=== PATIENT | male | born 1945 | race Caucasian/White ===

== ENCOUNTER → 2023-10-06 10:41 | Outpatient (CLI) | payer MEDICARE, OTHER, SELFPAY ==
--- NOTE | 2023-10-06 | DI.RAD.S_ITS ---
PROCEDURE: FL UPPER GI SERIES INDICATIONS: Prior Aissatou fundoplication. Heartburn. COMPARISON: None. 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 No suspicious abdominal calcifications. Visualized solid organ contours appear normal. Bony structures appear unremarkable. Esophagus: There is normal esophageal peristalsis. No strictures, extrinsic mass effects, or diverticula. No elicited gastroesophageal reflux. Recurrent hiatal hernia. Stomach: Stomach is normally distensible, without extrinsic mass effects. Pylorus and duodenal bulb demonstrate normal single-contrast morphology. There is ready transit of contrast through the gastric outlet into the small bowel. IMPRESSION: Recurrent hiatal hernia. Dictated by: Holger Valle M.D. on 10/06/2023 at 13:07 Approved by: Holger Valle M.D. on 10/06/2023 at 13:08
== END ==
PROVIDERS: PCP Registered Nurse; Referring Provider Internal Medicine Gastroenterology; Visit Provider Internal Medicine Gastroenterology
DX: Z87.19 Personal history of other diseases of the digestive system (principal); K44.9 Diaphragmatic hernia without obstruction or gangrene
CPT/HCPCS: 74240

== ENCOUNTER → 2024-04-04 13:01 | Outpatient (CLI) | payer MEDICARE, OTHER, SELFPAY ==
--- NOTE | 2024-04-04 13:03 | DI.US.S_ITS ---
PROCEDURE: US EXTREMITY NONVASC LOWER RT INDICATIONS: Strain of right Achilles tendon, initial encounter TECHNIQUE: Real-time scanning was performed of the Achilles tendon , with image documentation. COMPARISON: None. FINDINGS: Nonspecific focus of 3.3 x 0.9 x 1 point cm hypervascular focus at the Achilles tendon. IMPRESSION: Heterogeneous focus at the Achilles tendon with increased vascularity. This may represent hematoma. However, ultrasound findings are indeterminate. Dictated by: Bree Conklin M.D. on 04/04/2024 at 15:34 Approved by: Bree Conklin M.D. on 04/04/2024 at 15:36
== END ==
PROVIDERS: PCP Registered Nurse; Referring Provider Emergency Medicine; Visit Provider Emergency Medicine
DX: S86.011A Strain of right Achilles tendon, initial encounter (principal); X58.XXXA Exposure to other specified factors, initial encounter
CPT/HCPCS: 76882